=== PATIENT | female | born 1940 | race Caucasian/White ===

== ENCOUNTER 2022-11-28 10:34 | Emergency (ER) | payer MEDICARE, BC, SELFPAY ==
[2022-11-28 10:59] VITALS: BP 129/73; PULSE 92; RESP 24; TEMP 36.1; O2SAT 98; BMI 34.3
--- NOTE | 2022-11-28 11:22 | CRLHL7_ITS ---
For Patients: As a result of the Century Cures Act, medical imaging exams and procedure reports are released immediately into your electronic medical record. You may view this report before your referring provider. If you have questions, please contact your health care provider. INDICATION: Cough and exertional dyspnea. TECHNIQUE: Chest 2 views. COMPARISON: None. FINDINGS: Cardiovascular and mediastinum: Heart size and vasculature are normal in caliber and appearance. Lungs and pleural spaces: A small dense nodule at right lateral apex likely reflects a calcified granuloma or potentially sclerotic osseous lesion. No suspicious pulmonary nodule is detected. No sign of infiltrate or mass. No sign of pleural effusion. No pneumothorax. Bones and soft tissues: No significant findings. IMPRESSION: No acute or significant findings. Dictated by Dave Avery MD @ 11/28/2022 12:31:30 PM (Electronically Signed)
[2022-11-28] MEDS: IPRAT-ALBUT 0.5-2.5 MG/3 ML NEB 1 NEB IH (11:41)
[2022-11-28 11:50] LABS: PCR FLU A Negative PCR FLU A (Negative); PCR FLU B Negative PCR FLU B (Negative); PCR RSV Negative PCR RSV (Negative)
--- NOTE | 2022-11-28 11:54 | ED_ITS ---
HPI - SOB/Dyspnea General Chief Complaint: Shortness of Breath/Dyspnea Stated Complaint: cough,shortness of breath, had flu last week Time Seen by Provider: 11/28/22 11:12 History of Present Illness HPI Narrative: 82-year-old woman presenting to the emergency department with complaint of cough though really more with movement. Also exertional dyspnea. She has not had any leg swelling. Has not had a diagnosis of CHF. She does recall way back that may have had exercise-induced asthma with brief use of inhaler. She has not been using any recently. She used to get wheezy. Earlier this week thought she probably had influenza. No fevers measured. She has continued to have rhin orrhea. Does not actually have a cough when lying down. Has been treating with NyQuil and cough drops and is able to accomplish sleep. Has discovered some years old inhalers but has not used/tested them. Related Data Home Medications Medication Instructions Recorded Confirmed atenolol 25 mg tablet mg 11/28/22 bupropion HCl 150 mg 24 hr tablet, mg PO 11/28/22 extended release chlorthalidone 25 mg tablet mg 11/28/22 lisinopril 5 mg tablet mg 11/28/22 potassium chloride 10 mEq meq PO 11/28/22 tablet,extended release(part/cryst) Previous Rx's Medication Instructions Recorded albuterol sulfate 90 mcg/actuation 2 puff inhalation Q6H PRN 11/28/22 aerosol inhaler Shortness of breath, cough, wheeze #8.5 grams benzonatate 200 mg capsule 200 mg PO TID PRN cough, throat 11/28/22 tickle #15 caps prednisone 20 mg tablet 40 mg PO DAILY 5 days #10 tabs 11/28/22 Allergies Allergy/AdvReac Type Severity Reaction Status Date / Time niacin Allergy Verified 11/28/22 10:59 Penicillins Allergy Verified 11/28/22 10:59 Review of Systems Status of ROS: Reports: 10 or more systems reviewed and unremarkable except as noted in History and below [facility] Social History Smoking Status: Never smoker Do you use any of these nicotine containing products: None Second hand tobacco smoke exposure: No How often do you have a drink containing alcohol: never How often do you have six or more drinks on one occasion: Never AUDIT-C Alcohol total score: 0 Non-prescribed substance use: denies use service: No Exam Narrative: Exam Narrative: Pleasant. NAD. Generally breathing easily. Occasional small cough. There is rhinorrhea. Oropharynx is moist not notably erythematous. Hard to visualize well the posterior oropharynx. Lungs with good air movement. Trace clearing wheeze right upper chest. Heart with elevated rate in a regular rhythm. Extremities well perfused. Lower extremities with some trace dependent edema. Const: Vital Signs, click to edit/add: Vital Signs - 24 hr 11/28/22 10:59 Temperature 96.9 F L Pulse Rate [Right Pulse Oximeter] 92 Respiratory Rate 24 Blood Pressure [Ri ght Upper Arm] 129/73 Pulse Oximetry 98 Oxygen Delivery Me thod Room Air Documenting provider has reviewed patient's vital signs: yes Course Vital Signs Vital signs: Initial Vital Signs Temperature 96.9 F L 11/28/22 10:59 Temperature Source Temporal Artery Scan 11/28/22 10:59 Pulse Rate 92 11/28/22 10:59 Respiratory Rate 24 11/28/22 10:59 Blood Pressure 129/73 11/28/22 10:59 Blood Pressure Mean 91 11/28/22 10:59 Blood Pressure Position Sitting 11/28/22 10:59 Pulse Oximetry 98 11/28/22 10:59 Oxygen Delivery Method 11/28/22 10:59 Vital Signs Temperature 96.9 F L 11/28/22 10:59 Pulse Rate 92 11/28/22 10:59 Respiratory Rate 24 11/28/22 10:59 Blood Pressure 129/73 11/28/22 10:59 Pulse Oximetry 98 11/28/22 10:59 Oxygen Delivery Method 11/28/22 10:59 Temperature 96.9 F L 11/28/22 10:59 Pulse Rate 92 11/28/22 10:59 Respiratory Rate 24 11/28/22 10:59 Blood Pressure 129/73 11/28/22 10:59 Pulse Oximetry 98 11/28/22 10:59 Oxygen Delivery Method 11/28/22 10:59 MDM - SOB/Dyspnea MDM Narrative Medical decision making narrative: Think it is reasonable to do a chest x-ray at this point looking for secondary pneumonia. Also offered a nebulization treatment which Ms. Nesbitt excepted. Thought chest felt more open following this nebulization treatment. I would note a little jitteriness generally. Cough seems to have increased after nebulization in frequency a little. Further questioning that some of the cough she has been experiencing here might be generated from throat tickle more than elsewhere. Chest x-ray was by my read without evidence of acute airspace disease. Medical Records Attestation: I reviewed the patient's medical records. Lab Data Attestation: I reviewed the patient's lab results. Labs: Lab Results 11/28/22 Range/Units 11:01 SARS-CoV-2 (PCR) Negative SARS-CoV-2 (Negative) Influenza Type A (PCR) Negative PCR FLU A (Negative) Influenza Type B (PCR) Negative PCR FLU B (Negative) RSV (PCR) Negative PCR RSV (Negative) Discharge Plan Discharge Clinical Impression: URI, acute, Reactive airway disease, Cough Patient Disposition: Home, Self-Care Condition: Improved Additional Instructions: Be sure to stay hydrated. Consider sleeping under the mist of a cool mist humidifier. You might try pseudoephedrine though it can be a little stimulating, to decongest/dry up secretions which then might help with your cough. Menthol vapors. Sleep with head of bed elevated, maybe a recliner? Can still use your NyQuil but take care with diphenhydramine; it might be in the NyQuil. Delsym might be another option for cough. Return for persistent increased shortness of breath, persistent chest pain, intractable cough. Sucking on ice chips might be helpful with the cough as well. Prescriptions sent for prednisone, benzonatate, albuterol inhaler. Prescriptions: New albuterol sulfate 90 mcg/actuation HFA aerosol inhaler 2 puff inhalation Q6H PRN (Reason: Shortness of breath, cough, wheeze) Qty: 8.5 1RF Rx Instructions: Consider using with a spacer prednisone 20 mg tablet 40 mg PO DAILY 5 Days Qty: 10 0RF benzonatate 200 mg capsule 200 mg PO TID PRN (Reason: cough, throat tickle) Qty: 15 1RF No Action atenolol 25 mg tablet chlorthalidone 25 mg tablet lisinopril 5 mg tablet potassium chloride 10 mEq tablet,ER particles/crystals PO bupropion HCl 150 mg tablet extended release 24 hr PO Follow Up/Referrals: Joycelyn Renteria MD [Primary Care Provider] - Stand Alone Forms: [facility] Info Instructions
[2022-11-28 12:15] LABS: SARS PCR* Negative SARS-CoV-2 (Negative)
== END 2022-11-28 13:24 | disposition home or self-care (01) ==
PROVIDERS: Emergency Provider Family Medicine; PCP Family Medicine
DX: J06.9 Acute upper respiratory infection, unspecified (principal); J45.909 Unspecified asthma, uncomplicated
CPT/HCPCS: 71046; 87502; 87634; 87635; 94640; 99284

== ENCOUNTER 2023-06-17 09:24 | Emergency (ER) | payer MEDICARE, BC, SELFPAY ==
[2023-06-17 09:31] VITALS: BP 151/76; PULSE 66; RESP 22; TEMP 36; O2SAT 96; BMI 35.1
--- NOTE | 2023-06-17 12:05 | ED_ITS ---
HPI - General Adult General Chief complaint: Extremity Pain/Injury, Lower Stated complaint: L side hip pain Time Seen by Provider: 06/17/23 11:57 History of Present Illness HPI narrative: Elsa Nesbitt is a 82 year white female who got up from a chair yesterday and had pain in her left greater trochanteric bursa area it seemed to be somewhat sharp she felt better when she took a leftover narcotics she had at home and she was able to walk without difficulty I am able to flex extend her hip now and this time into internal external rotation without discomfort she. She does complain of pain over lateral aspect of her hip. She has been healthy other than some hypertension. She goes to a workout center and even working on some hip stretching as well. Related Data Home Medications Medication Instructions Recorded Confirmed atenolol 25 mg tablet 25 mg PO Q24H 11/28/22 06/17/23 bupropion HCl 150 mg 24 hr tablet, 150 mg PO DAILY 11/28/22 06/17/23 extended release chlorthalidone 25 mg tablet 25 mg PO DAILY 11/28/22 06/17/23 lisinopril 5 mg tablet 5 mg PO DAILY 11/28/22 06/17/23 potassium chloride 10 mEq 10 meq PO DAILY 11/28/22 06/17/23 tablet,extended release(part/cryst) Previous Rx's Medication Instructions Recorded hydrocodone 5 mg-acetaminophen 325 1 tab PO Q8H PRN pain #10 tabs 06/17/23 mg tablet methylprednisolone 4 mg tablets in See Rx Instructions PO .COMPLEX 06/17/23 a dose pack (Medrol (Gaston)) #21 ea Allergies Allergy/AdvReac Type Severity Reaction Status Date / Time niacin Allergy Verified 06/17/23 09:36 Penicillins Allergy Verified 06/17/23 09:36 Review of Systems Status of ROS: Reports: 6 or more systems reviewed and unremarkable except as noted in History and below PFSH PFSH Social History Smoking Status: Never smoker Do you use any of these nicotine containing products: None Second hand tobacco smoke exposure: No How often do you have a drink containing alcohol: never How often do you have six or more drinks on one occasion: Never AUDIT-C Alcohol total score: 0 Non-prescribed substance use: denies use service: No Exam Narrative: Exam Narrative: Objective: Vital signs unremarkable other than slightly elevated systolic pressure Elsa's very pleasant Left hip shows full range of motion internal external rotation. She does have tenderness over left greater trochanteric bursa. She is able to ambulate. She has no swelling of the lower extremity. She has no falls Const: Vital Signs, click to edit/add: Vital Signs - 24 hr 06/17/23 09:31 Temperature 96.8 F L Pulse Rate [Right Pulse Oximeter] 66 Respiratory Rate 22 Blood Pressure [Ri ght Upper Arm] 151/76 H Pulse Oximetry 96 Oxygen Delivery Me thod Room Air Course Vital Signs Vital signs: Initial Vital Signs Temperature 96.8 F L 06/17/23 09:31 Temperature Source Temporal Artery Scan 06/17/23 09:31 Pulse Rate 66 06/17/23 09:31 Respiratory Rate 22 06/17/23 09:31 Blood Pressure 151/76 H 06/17/23 09:31 Blood Pressure Mean 101 06/17/23 09:31 Blood Pressure Position Sitting 06/17/23 09:31 Pulse Oximetry 96 06/17/23 09:31 Oxygen Delivery Method Room Air 06/17/23 09:31 Vital Signs Temperature 96.8 F L 06/17/23 09:31 Pulse Rate 66 06/17/23 09:31 Respiratory Rate 22 06/17/23 09:31 Blood Pressure 151/76 H 06/17/23 09:31 Pulse Oximetry 96 06/17/23 09:31 Oxygen Delivery Method Room Air 06/17/23 09:31 Temperature 96.8 F L 06/17/23 09:31 Pulse Rate 66 06/17/23 09:31 Respiratory Rate 22 06/17/23 09:31 Blood Pressure 151/76 H 06/17/23 09:31 Pulse Oximetry 96 06/17/23 09:31 Oxygen Delivery Method Room Air 06/17/23 09:31 Medical Decision Making MDM Narrative Medical decision making narrative: 82-year-old white female with some pain over her left greater trochanteric bursa. Patient has no pain with internal-external rotation and flexion- extension of the left hip. She has no falls or injuries. This happened she is getting out of a chair. I think it be reasonable to do an x-ray but at this point with mutual decision making we decided not to do an x-ray given we think it is a more bursitis type picture. Does not appear to be radicular in nature. I think at this time would be reasonable to try some a Medrol Dosepak, will give her [place] 5/325 to take sparingly for pain or discomfort, ice to the area, recheck with primary care in several days if not improving. She was comfortable this plan. Will return to the ER sooner problems or concerns. Discharge Plan Discharge Clinical Impression: Greater trochanteric bursitis of left hip Patient Disposition: Home w/ Parent or Adult Condition: Stable Additional Instructions: Light activity, ice to the left hip in the area of pain for 5-10 minutes 3 to 5 times a day for several days, may use Advil as needed for discomfort, Shiloh for discomfort, and will give a Medrol Dosepak to see if will reduce inflammation that area. Recheck with regular doctor in 2-3 days if not improving, return to ED if worsens or changes. Activity Level: Light activity Discharge Diet: Regular Prescriptions: New methylprednisolone [Medrol (Gaston)] 4 mg tablets,dose pack See Rx Instructions .ROUTE .COMPLEX Qty: 21 0RF Rx Instructions: orally per package directions hydrocodone-acetaminophen 5-325 mg tablet 1 tab PO Q8H PRN (Reason: pain) Qty: 10 0RF No Action atenolol 25 mg tablet 25 mg PO Q24H chlorthalidone 25 mg tablet 25 mg PO DAILY lisinopril 5 mg tablet 5 mg PO DAILY potassium chloride 10 mEq tablet,ER particles/crystals 10 meq PO DAILY bupropion HCl 150 mg tablet extended release 24 hr 150 mg PO DAILY Follow Up/Referrals: Joycelyn Renteria MD [Primary Care Provider] - Stand Alone Forms: [employer] Info Instructions
== END 2023-06-17 12:22 | disposition home or self-care (01) ==
LOC: ED 12:17
PROVIDERS: Emergency Provider Family Medicine; PCP Family Medicine
DX: M70.62 Trochanteric bursitis, left hip (principal)
CPT/HCPCS: 99283

== ENCOUNTER 2023-09-02 11:31 | Emergency (ER) | payer MEDICARE, BC, SELFPAY ==
[2023-09-02 11:38] VITALS: BP 148/73; PULSE 78; RESP 18; TEMP 36.4; O2SAT 96; BMI 33.7
--- NOTE | 2023-09-02 11:59 | ED_ITS ---
HPI - General Adult General Chief complaint: Hip Injury/Pain Stated complaint: hip pain Time Seen by Provider: 09/02/23 11:35 History of Present Illness HPI narrative: This 82-year-old female comes in with left hip pain radiating all way down to her foot. This pain was present without so much pain radiating down her leg about 2 and half months ago. At that time she had a Medrol Dosepak and some pain medicines and she states the pain went away completely. Since the last 4 days she has had similar but worse pain with radiation into her left foot. She does not describe any injury event or overuse activities. She does do regular exercises but is careful not to overdo it. She states that her left knee is in need of a knee replacement at some point. She does not report any significant low back pain. She states that the pain is distinctly worse with weight- bearing. When she is sitting she does not feel any pain. She did have some pain keeping her awake at night however. She states that she called the clinic today and was instructed to come here to the emergency department. Related Data Home Medications Medication Instructions Recorded Confirmed atenolol 25 mg tablet 25 mg PO Q24H 11/28/22 06/17/23 bupropion HCl 150 mg 24 hr tablet, 150 mg PO DAILY 11/28/22 06/17/23 extended release chlorthalidone 25 mg tablet 25 mg PO DAILY 11/28/22 06/17/23 lisinopril 5 mg tablet 5 mg PO DAILY 11/28/22 06/17/23 potassium chloride 10 mEq 10 meq PO DAILY 11/28/22 06/17/23 tablet,extended release(part/cryst) Previous Rx's Medication Instructions Recorded hydrocodone 5 mg-acetaminophen 325 1 tab PO Q8H PRN pain #10 tabs 06/17/23 mg tablet methylprednisolone 4 mg tablets in See Rx Instructions PO .COMPLEX 06/17/23 a dose pack (Medrol (Gaston)) #21 ea cyclobenzaprine 10 mg tablet 10 mg PO TID #15 tabs 09/02/23 ketorolac 10 mg tablet 10 mg PO Q8H 5 days #15 tabs 09/02/23 methylprednisolone 4 mg tablets in See Rx Instructions PO .COMPLEX 09/02/23 a dose pack (Medrol (Gaston)) #21 ea Allergies Allergy/AdvReac Type Severity Reaction Status Date / Time niacin Allergy Verified 06/17/23 09:36 Penicillins Allergy Verified 06/17/23 09:36 Review of Systems Status of ROS: Reports: 10 or more systems reviewed and unremarkable except as noted in History and below Narrative: Constitutional: No fevers, no weight gain or loss. Eyes: No discharge. No vision changes. HENT: No congestion, no sore throat, no ear pain. Cardiovascular: No chest pain, no palpitations. Respiratory: No shortness of breath, no wheezes, no cough. Gastrointestinal: No abdominal pain, no vomiting, no diarrhea. Genitourinary: No dysuria, no hematuria. Musculoskeletal: Normal range of motion. Left hip pain radiating down her left leg. Skin: No rashes, no pruritis. Neurological: No dizziness, weakness, sensory change, speech change. Endo/Heme/Allergies: No bruising or bleeding. No polydipsia. Pysch: no suicidality, no anxiety, no insomnia. All other systems reviewed and are negative. [facility] Social History Smoking Status: Never smoker Do you use any of these nicotine containing products: None Second hand tobacco smoke exposure: No How often do you have a drink containing alcohol: never How often do you have six or more drinks on one occasion: Never AUDIT-C Alcohol total score: 0 Non-prescribed substance use: denies use service: No Exam Narrative: Exam Narrative: Constitutional: Well-developed, well-nourished, no acute distress. HEENT: Normocephalic, atraumatic. Neck: Normal range of motion. Nontender. Supple. Heart: Intact distal pulses. Lungs: No chest discomfort. No wheezes, rhonchi, or rales. Abdomen: Nontender. Back: Normal range of motion. Extremities: Normal range of motion. No injury. Pain in the left hip extending laterally down to the knee and to the foot. Straight leg raise is negative bilaterally. The patient does not report any pain when externally or internally rotating her hip. She is able to lift her leg from a sitting position without any difficulty. Skin: Intact. No rash. Warm. No erythema or pallor. Neurologic: No altered sensation. No weakness. Alert and oriented. Psychiatric: No suicidality. No anxiety or depression. No insomnia. Nursing notes and vitals signs are reviewed. Const: Vital Signs, click to edit/add: Vital Signs - 24 hr 09/02/23 11:38 Temperature 97.6 F Pulse Rate [Left P ulse Oximeter] 78 Respiratory Rate 18 Blood Pressure [Le ft Upper Arm] 148/73 H Pulse Oximetry 96 Oxygen Delivery Me thod Room Air Course Vital Signs Vital signs: Initial Vital Signs Temperature 97.6 F 09/02/23 11:38 Temperature Source Temporal Artery Scan 09/02/23 11:38 Pulse Rate 78 09/02/23 11:38 Pulse Rhythm Regular 09/02/23 11:38 Pulse Strength 3+ Normal 09/02/23 11:38 Respiratory Rate 18 09/02/23 11:38 Blood Pressure 148/73 H 09/02/23 11:38 Blood Pressure Mean 98 09/02/23 11:38 Blood Pressure Position Sitting 09/02/23 11:38 Pulse Oximetry 96 09/02/23 11:38 Oxygen Delivery Method Room Air 09/02/23 11:38 Vital Signs Temperature 97.6 F 09/02/23 11:38 Pulse Rate 78 09/02/23 11:38 Respiratory Rate 18 09/02/23 11:38 Blood Pressure 148/73 H 09/02/23 11:38 Pulse Oximetry 96 09/02/23 11:38 Oxygen Delivery Method Room Air 09/02/23 11:38 Temperature 97.6 F 09/02/23 11:38 Pulse Rate 78 09/02/23 11:38 Respiratory Rate 18 09/02/23 11:38 Blood Pressure 148/73 H 09/02/23 11:38 Pulse Oximetry 96 09/02/23 11:38 Oxygen Delivery Method Room Air 09/02/23 11:38 Medical Decision Making MDM Narrative Medical decision making narrative: This patient comes in with left hip pain as described above. She did not have any injury event or strenuous activity that mandates x-ray imaging at this time. She was into a clinic appointment a month or so ago and did have an x-ray at that time with no abnormalities according to the patient's report. I did not have access to that report or the images. Her symptoms may be related to nerve impingement but there is a history of degenerative disease which may also be a primary contributor to her symptoms both in the hip and the knee now. She received prescriptions for Medrol Dosepak, Flexeril, and Toradol, she does have some Mclean available at home. I advised her to follow-up with her primary physician for ongoing management of medications and also encouraged her to follow-up with orthopedic clinic or perhaps spine clinic for further evaluation and treatment. She received phone number to call for appointment in this regard. Discharge Plan Discharge Clinical Impression: Acute hip pain Patient Disposition: Home, Self-Care Condition: Unchanged Additional Instructions: Take medications as needed and indicated. Activity as tolerated. Follow-up with orthopedic clinic or spine clinic. Appointments for either of these can be made by calling [phone]. Follow-up with primary physician for ongoing management with medications as needed. Prescriptions: New cyclobenzaprine 10 mg tablet 10 mg PO TID Qty: 15 0RF ketorolac 10 mg tablet 10 mg PO Q8H 5 Days Qty: 15 0RF methylprednisolone [Medrol (Gaston)] 4 mg tablets,dose pack See Rx Instructions .ROUTE .COMPLEX Qty: 21 0RF Rx Instructions: orally per package directions No Action methylprednisolone [Medrol (Gaston)] 4 mg tablets,dose pack See Rx Instructions .ROUTE .COMPLEX Qty: 21 0RF Rx Instructions: orally per package directions hydrocodone-acetaminophen 5-325 mg tablet 1 tab PO Q8H PRN (Reason: pain) Qty: 10 0RF atenolol 25 mg tablet 25 mg PO Q24H chlorthalidone 25 mg tablet 25 mg PO DAILY lisinopril 5 mg tablet 5 mg PO DAILY potassium chloride 10 mEq tablet,ER particles/crystals 10 meq PO DAILY bupropion HCl 150 mg tablet extended release 24 hr 150 mg PO DAILY Follow Up/Referrals: Joycelyn Renteria MD [Primary Care Provider] - Stand Alone Forms: [employer] Info Instructions
== END 2023-09-02 12:22 | disposition home or self-care (01) ==
LOC: ED 12:12
PROVIDERS: Emergency Provider Emergency Medicine Emergency Medical Services; PCP Family Medicine
DX: M25.552 Pain in left hip (principal)
CPT/HCPCS: 99283; 99284

== ENCOUNTER 2023-10-15 12:59 | Outpatient (RCR) | payer MEDICARE, BC, SELFPAY | END 2024-02-12 23:59 | disposition home or self-care (01) | PROVIDERS: PCP Family Medicine; Visit Provider Family Medicine | DX: M54.16 Radiculopathy, lumbar region (principal); Z51.89 Encounter for other specified aftercare | CPT/HCPCS: 97110; 97161 ==